=== PATIENT | female | born 1980 | race Caucasian/White ===

== ENCOUNTER 2017-06-13 13:06 | Inpatient (IN) | payer BC, OTHER ==
[~2017-06-13] VITALS: Ht 160 cm; Wt 92.2 kg
[~2017-06-13 13:06] MED LIST: ALBU18HF INH
[2017-06-13] MEDS ORDERED: GUAIFENESIN/DM 200-20MG, 10ML UDC PO PRN (13:30)
[2017-06-13] MEDS ORDERED: ONDANSETRON ODT 4 MG PO PRN (13:30)
[2017-06-13] MEDS ORDERED: POLYETHYLENE GLYCOL 17 GM PACKET PO PRN (13:30)
[2017-06-13] MEDS ORDERED: LABETALOL 5MG/ML, 20ML IVPush PRN (13:30)
[2017-06-13] MEDS ORDERED: ONDANSETRON 2MG/ML, 2ML IVPush PRN (13:30)
[2017-06-13 13:31] VITALS: BP 110/62
[2017-06-13] MEDS ORDERED: ALBUTEROL/IPRATROPIUM 2.5MG/0.5MG, 3 ML IPPB PRN (14:00)
[2017-06-13] MEDS ORDERED: ALBUTEROL/IPRATROPIUM 2.5MG/0.5MG, 3 ML NPPB PRN (14:00)
[2017-06-13] MEDS ORDERED: PLEASE ENTER HEIGHT AND WEIGHT MC SCH (14:00)
[2017-06-13] MEDS: ENOXAPARIN 40 MG/0.4 ML SQ SCH (15:26)
[2017-06-13] MEDS ORDERED: ALBUTEROL SULFATE 2.5 MG/3 ML NPPB SCH (16:00)
[2017-06-13 20:53] VITALS: BP 100/69
[2017-06-13] MEDS: ALBUTEROL/IPRATROPIUM 2.5MG/0.5MG, 3 ML NPPB PRN (22:00)
[2017-06-14 03:25] VITALS: BP 100/64
[2017-06-14 04:59] LABS: MEAN CORPUSCULAR HGB CONC 33.9 g/dL (32.4-35.8); MEAN CORPUSCULAR VOLUME 91.4 fL (80-100); MEAN PLATELET VOLUME 8.1 fL (7.4-10.4); PLATELET COUNT 321 x10^3/uL (130-400); RED BLOOD COUNT 4.57 x10^6/uL (3.82-5.3); RED CELL DISTRIBUTION WIDTH 12.8 % (9.6-15.2)
[2017-06-14 05:02] LABS: ALBUMIN 3.5 g/dL (3.4-5.0); ANION GAP 10 mmol/L (5-15); CALCIUM 8.6 mg/dL (8.5-10.1); CHLORIDE 107 mmol/L (98-107)
[2017-06-14 05:05] LABS: CREATININE 0.74 mg/dL (0.55-1.02)
[2017-06-14 05:06] LABS: ALANINE AMINOTRANSFERASE 17 U/L (12-78); ALKALINE PHOSPHATASE 71 U/L (45-117); BILIRUBIN,TOTAL 0.4 mg/dL (0.2-1.0); TOTAL PROTEIN 7.3 g/dL (6.4-8.2)
[2017-06-14 06:23] LABS: BASOPHILS # (AUTO) 0.01 x10^3/uL (0-0.1); BASOPHILS % (AUTO) 0 % (0-1); EOSINOPHILS % (AUTO) 0 % (1-7); LYMPHOCYTES % (AUTO) 8 % (22-44); MD SCAN; MONOCYTES # (AUTO) 0.67 x10^3/uL (0.2-0.8); MONOCYTES % (AUTO) 3 % (2-9); NEUTROPHILS # (AUTO) 21.15 x10^3/uL (1.8-6.8); NEUTROPHILS % (AUTO) 89 % (42-75)
[2017-06-14 08:30] VITALS: BP 108/76
[2017-06-14] MEDS: SENNA/DOCUSATE TABLET PO SCH (08:56)
[2017-06-14] MEDS: ALBUTEROL/IPRATROPIUM 2.5MG/0.5MG, 3 ML NPPB PRN ×2 (09:38→14:08)
[2017-06-14] MEDS: GUAIFENESIN 200 MG TABLET PO SCH ×3 (12:29→21:34)
[2017-06-14 14:34] VITALS: BP 110/57
[2017-06-14] MEDS: ENOXAPARIN 40 MG/0.4 ML SQ SCH (15:45)
[2017-06-14] MEDS: ALBUTEROL/IPRATROPIUM 2.5MG/0.5MG, 3 ML NPPB SCH ×2 (16:00→19:30)
[2017-06-14 21:57] VITALS: BP 100/53
[2017-06-15 03:32] VITALS: BP 110/70
[2017-06-15] MEDS: ALBUTEROL/IPRATROPIUM 2.5MG/0.5MG, 3 ML NPPB SCH ×5 (04:00→21:00)
[2017-06-15] MEDS: GUAIFENESIN 200 MG TABLET PO SCH ×4 (06:06→20:52)
[2017-06-15 08:14] VITALS: BP 107/51
[2017-06-15 08:22] LABS: MEAN CORPUSCULAR HEMOGLOBIN 30.6 pg (27.0-34.8); MEAN CORPUSCULAR HGB CONC 33.4 g/dL (32.4-35.8); MEAN CORPUSCULAR VOLUME 91.5 fL (80-100); MEAN PLATELET VOLUME 7.7 fL (7.4-10.4); PLATELET COUNT 291 x10^3/uL (130-400); RED BLOOD COUNT 4.36 x10^6/uL (3.82-5.3); RED CELL DISTRIBUTION WIDTH 13.1 % (9.6-15.2)
[2017-06-15 08:30] LABS: ALBUMIN 3.3 g/dL (3.4-5.0); ANION GAP 7 mmol/L (5-15); CALCIUM 8.3 mg/dL (8.5-10.1); CHLORIDE 108 mmol/L (98-107); CREATININE 0.69 mg/dL (0.55-1.02)
[2017-06-15 08:46] LABS: BASOPHILS # (AUTO) 0.05 x10^3/uL (0-0.1); BASOPHILS % (AUTO) 0 % (0-1); EOSINOPHILS % (AUTO) 2 % (1-7); LYMPHOCYTES # (AUTO) 4.07 x10^3/uL (1-3.4); LYMPHOCYTES % (AUTO) 23 % (22-44); MD SCAN; MONOCYTES # (AUTO) 0.82 x10^3/uL (0.2-0.8); MONOCYTES % (AUTO) 5 % (2-9); NEUTROPHILS # (AUTO) 12.87 x10^3/uL (1.8-6.8); NEUTROPHILS % (AUTO) 71 % (42-75)
[2017-06-15] MEDS: methylPREDNISolone SOD SUCC 125 MG/2 ML IVPush SCH ×3 (09:00→20:53)
[2017-06-15] MEDS ORDERED: POTASSIUM CHLORIDE 20 MEQ TAB.ER.PRT PO ONE ×2 (09:00→12:00)
[2017-06-15] MEDS: SENNA/DOCUSATE TABLET PO SCH (09:00)
[2017-06-15 14:20] VITALS: BP 107/53
[2017-06-15] MEDS: ENOXAPARIN 40 MG/0.4 ML SQ SCH (15:54)
[2017-06-15 20:40] VITALS: BP 115/62
[2017-06-16 02:38] VITALS: BP 98/65
[2017-06-16] MEDS: methylPREDNISolone SOD SUCC 125 MG/2 ML IVPush SCH ×4 (02:55→22:27)
[2017-06-16 05:35] LABS: MEAN CORPUSCULAR HEMOGLOBIN 31.1 pg (27.0-34.8); MEAN CORPUSCULAR HGB CONC 33.7 g/dL (32.4-35.8); MEAN CORPUSCULAR VOLUME 92.1 fL (80-100); MEAN PLATELET VOLUME 7.9 fL (7.4-10.4); PLATELET COUNT 340 x10^3/uL (130-400); RED BLOOD COUNT 4.75 x10^6/uL (3.82-5.3); RED CELL DISTRIBUTION WIDTH 12.8 % (9.6-15.2)
[2017-06-16 05:43] LABS: ANION GAP 9 mmol/L (5-15); CALCIUM 9.2 mg/dL (8.5-10.1); CHLORIDE 106 mmol/L (98-107); CREATININE 0.66 mg/dL (0.55-1.02)
[2017-06-16 05:59] LABS: MD YES
[2017-06-16] MEDS: ALBUTEROL/IPRATROPIUM 2.5MG/0.5MG, 3 ML NPPB SCH ×4 (06:00→19:24)
[2017-06-16 06:01] LABS: BAND#(MANUAL) 0.27 x10^3/uL; BANDS%(MANUAL) 1 % (0-7); LYMPH#(MANUAL) 1.06 x10^3/uL (1-3.4); LYMPHS% (MANUAL) 4 % (22-44); MONOS#(MANUAL) 0.53 x10^3/uL (0.3-2.7); MONOS% (MANUAL) 2 % (2-9); SEG#(MANUAL) 24.65 x10^3/uL (1.8-6.8); SEGS% (MANUAL) 93 % (42-75)
[2017-06-16 06:03] LABS: POLYCHROMASIA 1+
[2017-06-16 06:04] LABS: <PLATELET ESTIMATE> ADEQUATE; <PLT MORPHOLOGY> NORMAL PLT MORPH
[2017-06-16] MEDS: GUAIFENESIN 200 MG TABLET PO SCH ×4 (06:14→22:27)
[2017-06-16] MEDS: SENNA/DOCUSATE TABLET PO SCH (08:12)
[2017-06-16 08:22] VITALS: BP 108/56
[2017-06-16 13:23] VITALS: BP 121/79
[2017-06-16] MEDS: ENOXAPARIN 40 MG/0.4 ML SQ SCH (17:04)
[2017-06-16 20:19] VITALS: BP 124/55
[2017-06-17 01:43] VITALS: BP 97/60
[2017-06-17] MEDS: methylPREDNISolone SOD SUCC 125 MG/2 ML IVPush SCH (04:00)
[2017-06-17 06:06] LABS: MEAN CORPUSCULAR HEMOGLOBIN 30.9 pg (27.0-34.8); MEAN CORPUSCULAR HGB CONC 33.6 g/dL (32.4-35.8); MEAN CORPUSCULAR VOLUME 92.2 fL (80-100); PLATELET COUNT 359 x10^3/uL (130-400); RED BLOOD COUNT 4.79 x10^6/uL (3.82-5.3); RED CELL DISTRIBUTION WIDTH 12.9 % (9.6-15.2)
[2017-06-17 06:11] LABS: ANION GAP 9 mmol/L (5-15); CALCIUM 9.4 mg/dL (8.5-10.1); CHLORIDE 105 mmol/L (98-107); CREATININE 0.67 mg/dL (0.55-1.02)
[2017-06-17 06:43] LABS: BASOPHILS # (AUTO) 0.02 x10^3/uL (0-0.1); BASOPHILS % (AUTO) 0 % (0-1); EOSINOPHILS % (AUTO) 0 % (1-7); LYMPHOCYTES # (AUTO) 1.37 x10^3/uL (1-3.4); LYMPHOCYTES % (AUTO) 4 % (22-44); MD SCAN; MONOCYTES # (AUTO) 0.32 x10^3/uL (0.2-0.8); MONOCYTES % (AUTO) 1 % (2-9); NEUTROPHILS # (AUTO) 30.14 x10^3/uL (1.8-6.8); NEUTROPHILS % (AUTO) 95 % (42-75)
[2017-06-17] MEDS: GUAIFENESIN 200 MG TABLET PO SCH ×3 (06:48→15:53)
[2017-06-17 07:03] VITALS: BP 104/66
[2017-06-17] MEDS: SENNA/DOCUSATE TABLET PO SCH (07:16)
[2017-06-17] MEDS: ALBUTEROL/IPRATROPIUM 2.5MG/0.5MG, 3 ML NPPB SCH ×3 (07:20→15:20)
[2017-06-17] MEDS ORDERED: BUDE10.2 INH (09:56)
[2017-06-17] MEDS ORDERED: PRED20TA PO (09:56)
[2017-06-17] MEDS ORDERED: GUAI200T3 PO (09:56)
[2017-06-17 12:15] VITALS: BP 110/72
== END 2017-06-17 16:22 | disposition home or self-care (01) | DRG 189 ==
LOC: 3NE 13:38 → DCLOUNGE 06-17 15:14
PROVIDERS: ADMIT Internal Medicine; ATTEND Internal Medicine
DX: J96.01 Acute respiratory failure with hypoxia (principal); E44.1 Mild protein-calorie malnutrition; J45.901 Unspecified asthma with (acute) exacerbation; D72.829 Elevated white blood cell count, unspecified; E66.9 Obesity, unspecified; Z80.3 Family history of malignant neoplasm of breast; Z83.3 Family history of diabetes mellitus; Z68.36 Body mass index [BMI] 36.0-36.9, adult
CPT/HCPCS: 36415; 71045; 80048; 80053; 82040; 83735; 84100; 85025; 87081; 87880; 93005; 94640; J1650; J7620; J2930; J7512

== ENCOUNTER 2018-11-30 19:57 | Emergency (ER) | payer OTHER ==
[~2018-11-30] VITALS: Ht 160 cm; Wt 91.8 kg
[~2018-11-30 19:57] MED LIST changes: +BUDE10.2 INH; +FLUT1AER INH; +FLUT9.9S NAS; +GUAI200T3 PO; +MONT10TA6 PO; +PRED20TA PO
[2018-11-30 19:59] VITALS: BP 103/70
== END 2018-11-30 21:09 ==
LOC: ED 20:11
DX: T75.4XXA Electrocution, initial encounter (principal); J45.909 Unspecified asthma, uncomplicated; W86.1XXA Exposure to industrial wiring, appliances and electrical machinery, initial encounter; Y93.89 Activity, other specified; Y92.098 Other place in other non-institutional residence as the place of occurrence of the external cause; Y99.8 Other external cause status
CPT/HCPCS: 93005; 99283

== ENCOUNTER 2019-07-26 22:32 | Emergency (ER) | payer OTHER ==
[~2019-07-26] VITALS: Ht 160 cm; Wt 91.4 kg
[~2019-07-26 22:32] MED LIST changes: -GUAI200T3 PO; +GUAI200T37 PO
[2019-07-26 22:34] VITALS: BP 119/63
[2019-07-26] MEDS ORDERED: METHOCARBAMOL 750 MG TABLET PO ONE (23:00)
[2019-07-26] MEDS ORDERED: IBUPROFEN 600 MG TABLET PO ONE (23:00)
[2019-07-26] MEDS ORDERED: METHOCARBAMOL 750 MG TABLET ONE (23:02)
[2019-07-26] MEDS ORDERED: IBUPROFEN 600 MG TABLET ONE (23:02)
== END 2019-07-26 23:14 | disposition home or self-care (01) ==
LOC: ED 23:10
DX: S39.012A Strain of muscle, fascia and tendon of lower back, initial encounter (principal); J45.909 Unspecified asthma, uncomplicated; X58.XXXA Exposure to other specified factors, initial encounter; Y93.89 Activity, other specified; Y92.89 Other specified places as the place of occurrence of the external cause; Y99.8 Other external cause status
CPT/HCPCS: 99283

== ENCOUNTER 2020-11-12 22:39 | Emergency (ER) | payer OTHER ==
[~2020-11-12] VITALS: Ht 160 cm; Wt 96.7 kg
--- NOTE | 2020-11-12 23:12 | NUR ---
PT'S NAME AND BIRTHDAY WRONG, CHARTING DONE ON OTHER CHART, URINE COLLECTED ON THIS CHART. AWAITING MERGING OF CHARTS. PT N LOBBY, NO S/S OF ACUTE DISTRESS
[2020-11-12 23:29] LABS: HCG UR SG 1.011 (1.003-1.030); MICROSCOPIC AUTO
[2020-11-13 00:04] VITALS: BP 122/55
--- NOTE | 2020-11-13 00:15 | NUR ---
copy and pasted triage note from other chart to this chart due to seperate accounts
--- NOTE | 2020-11-13 00:16 | NUR ---
Patient given discharge instructions and they have confirmed that they understand the instructions. Patient ambulatory with steady gait. pt's s/o to drive home
== END 2020-11-13 00:20 | disposition home or self-care (01) ==
LOC: ED 23:09
DX: N30.00 Acute cystitis without hematuria (principal); R11.2 Nausea with vomiting, unspecified; J45.909 Unspecified asthma, uncomplicated
CPT/HCPCS: 81001; 81025; 87077; 87086; 87186; 99283